=== PATIENT | female | born 2005 | race Two or more races ===

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

== ENCOUNTER 2024-03-07 23:36 | Emergency (ER) | payer OTHER ==
[2024-03-07 23:41] VITALS: BP 112/76; PULSE 78; RESP 16; TEMP 98.4; BMI 24.2
[2024-03-08] MEDS ORDERED: predniSONE 20 MG TABLET (UD) ONE (00:36)
[2024-03-08] MEDS ORDERED: FAMOTIDINE 20 MG TABLET ONE (00:36)
[2024-03-08] MEDS: FAMOTIDINE 10 MG TABLET PO ONE (00:43)
[2024-03-08] MEDS: predniSONE 20 MG TABLET (UD) PO ONE (00:43)
== END 2024-03-08 02:12 | disposition home or self-care (01) ==
LOC: JER 23:36
DX: R21 Rash and other nonspecific skin eruption (principal); T78.1XXA Other adverse food reactions, not elsewhere classified, initial encounter; T49.2X5A Adverse effect of local astringents and local detergents, initial encounter; Z91.018 Allergy to other foods
CPT/HCPCS: 99283-25